=== PATIENT | male | born 1945 | race Caucasian/White ===

== ENCOUNTER 2017-11-17 13:38 | Emergency (ER) | payer MEDICARE, OTHER ==
[~2017-11-17] VITALS: Ht 170.2 cm; Wt 95.3 kg
[2017-11-17] MEDS ORDERED: MOBIC7.5 MG PO (13:49)
[2017-11-17] MEDS ORDERED: HYDROCODONE-AP1 EAC6 PO (16:49)
[2017-11-17] MEDS ORDERED: KEFLEX500 M1 PO (16:49)
[2017-11-17 17:23] VITALS: BP 142/79
--- NOTE | 2017-11-23 07:08 | CON ---
[address] [address] CONSULTATION Name: LINDSAY CLEVELAND Room: [facility]#: [id number] Admission: 11/17/17 Attend Phys: Discharge: 11/17/17 Date of : 47 Report #: [id number] THIS REPORT FOR: //name// CC: Pilar Kirkland [facility] Orthopedic Emergency Room Consult HISTORY OF PRESENT ILLNESS: The patient is very pleasant 72-year-old gentleman who is right hand dominant with an injury to his left hand during a work-related injury. This gentleman works for [employer], was carrying and delivering a flower vase that was made of glass slipped, fell, the glass broke appropriately and it did cut his left hand region. Orthopedics was consulted for an injury to his left thumb and the palm area. The patient has appropriately been worked up in the emergency room. He did have an IV placed in the right hand region for future antibiotics. The patient also at this point in time has never had an injury to this left thumb area or the palm area. The gentleman at this point in time otherwise has had a previous anesthetic area applied to the thumb prior to this visit by myself, as he was initially evaluated. PHYSICAL EXAMINATION: GENERAL: This gentleman otherwise is very pleasant, is alert, oriented, and cooperative, shows appropriate affect and judgment. HEENT: He is normocephalic. His sclerae are white. Mucous membranes are moist. EXTREMITIES: He does demonstrate to show on this clinical presentation that he has a curvilinear 3 cm laceration over the volar aspect of the left thumb that is just proximal to the IP crease of that thumb area. Second injury is on the palm side at the base of the index finger, right over the mid carpal head region. He has a flap laceration there, appears relatively superficial. The patient upon on his physical examination of the hand otherwise has complete inability to flex the left thumb region, but extension is definitely intact. The patient, of course, has some diminished sensation to this thumb area secondary to having the local anesthetic applied. The patient, upon his examination, otherwise I did discuss with this gentleman that would like to go ahead and wash this lacerated area of the left thumb to clinically inspect it a little closer and he did agree with that today. Gentleman was given just a little bit more 1% Xylocaine plain local anesthetic across the flap injury with a 25-gauge needle, approximately 4 mL. At this point in time, the flap was totally irrigated with normal saline irrigation. The thumb was placed for motion at that level and irrigated out completely. The base of the flexor tendon was easily visualized. The proximal aspect of the tendon was not present within the lacerated area. The patient at this point in time did have that flap loosely closed with 3 simple nylon sutures leaving the remaining of this area open. The flap injury [place] [address] CONSULTATION Name: [facility]INDSAY [place]AND [id number] Admission: 11/17/17 Attend Phys: Discharge: 11/17/17 Date of : 47 Report #: [id number] initially picked up with the forceps, that lacerated skin completely fell off. At that point in time, it was approximately 1 cm x 1 cm x about 3 mm deep, did not involve any deep structures. At this point in time, the gentleman's x-ray was reviewed as well prior to this irrigation, but upon discussion with him, he did not have any fractures at this finger. IMPRESSION: Overall, his clinical impression is complete laceration of flexor pollicis longus tendon to the left thumb region with a small flap injury of the palm space as detailed above secondary to work comp injury. PLAN: At this point in time, we put him in a sterile dressing to his hand region. I told him I would call a hand surgeon, which I appropriately did and information was passed on to them, the face sheet was faxed over to them and we would get him in to appropriately have this flexor tendon repaired. The patient was sent to Dr. Hooper and their office would take over managing the work comp injury from here. Mariza was given a script for Keflex, as well as some [place] for pain medication at the time of his discharge in case it is a day or two before getting into the hand surgeon. He does understand that he can have some time to get into the hand surgeon if needed depending upon the schedules etc. At this point in time, that is still a very repairable tendon. All questions were answered otherwise. It is our pleasure of seeing and taking care of the patient in today for the [employer] injury and laceration to his hand. <ELECTRONICALLY SIGNED> By: Lindsay Ibrahim DO 11/23/17 [id number] Ibrahim DO /nt
== END 2017-11-17 17:25 | disposition home or self-care (01) ==
LOC: M.ERS 13:38
DX: S61.012A Laceration without foreign body of left thumb without damage to nail, initial encounter (principal); M19.90 Unspecified osteoarthritis, unspecified site; Z88.0 Allergy status to penicillin; W18.39XA Other fall on same level, initial encounter; Y93.89 Activity, other specified; Y92.89 Other specified places as the place of occurrence of the external cause; Y99.8 Other external cause status